=== PATIENT | male | born 1970 ===

== ENCOUNTER → 2021-07-26 | Outpatient (CLI) | payer OTHER ==
--- NOTE | 2021-07-26 12:19 | RAD ---
EXAM: Left chest sonogram. HISTORY: Mass. TECHNIQUE: Sonographic imaging of the left chest wall at the site of palpable concern was performed. COMPARISON: None. FINDINGS: There is no suspicious finding within the lateral left chest wall at the site of concern. IMPRESSION: Unremarkable sonographic imaging of the lateral left chest wall. No mass or fluid collect ion is seen. Cross-sectional imaging may be indicated if there is concern for a sonographically occul t lesion. Electronically signed by: Yojana Ervin MD (07/26/2021 12:17 PM) [id number]
== END ==
LOC: US 10:55
PROVIDERS: ATTEND Nurse Practitioner Family
DX: R22.2 Localized swelling, mass and lump, trunk (principal)
CPT/HCPCS: 76604